=== PATIENT | male | born 1960 | race Caucasian/White ===

== ENCOUNTER → 2017-10-18 | Outpatient (REF) ==
[~2017-10-18] MED LIST: ASPIRIN E.C. 8181 MG PO; LIPITOR40 MG PO; SYNTHROID0.2 M1 PO; VITAMIN D32000 IU PO; ZOCOR 20MG20 MG PO
== END ==
LOC: ZLAB.WCH 17:50
DX: Z01.89 Encounter for other specified special examinations (principal)

== ENCOUNTER → 2017-11-14 | Outpatient (REF) | LOC: ZLAB.WCH 17:48 | DX: Z01.89 Encounter for other specified special examinations (principal) | CPT/HCPCS: G0103 ==

== ENCOUNTER 2018-03-29 13:13 | Inpatient (IN) | payer BC ==
[~2018-03-29] VITALS: Ht 180.3 cm; Wt 93.5 kg
[2018-04-04] VITALS (12 sets, daily range): BP systolic 119–146; BP diastolic 60–86; PULSE 66–84; TEMP 98.3–99.7
[2018-04-04] MEDS ORDERED: SYNTHROID0.075 MG/T PO (06:03)
[2018-04-04] MEDS ORDERED: ZYRTEC 10MG10 MG PO (06:04)
[2018-04-04] MEDS ORDERED: FLEXERIL 1010 MG/TAB PO (12:17)
[2018-04-04] MEDS ORDERED: TYLENOL 500MG500 MG PO (12:18)
[2018-04-05 04:00] VITALS: BP 119/67; PULSE 67; TEMP 98.6
[2018-04-05 06:25] LABS: BASO % 0.3 % (0.0-2.0); EOS % 0.2 % (0-4.0); GRAN # 8.5 (1.4-6.5); GRAN % 71.5 % (42.2-75.2); LYMPH % 17.2 % (20.0-51.0); MEAN CELL VOLUME 92 fl (80.0-100.0); MEAN CORPUSCULAR HEMOGLOBIN 30 pg (27.0-31.0); MEAN CORPUSCULAR HGB CONC 33 g/dl (33.0-37.0); MEAN PLATELET VOLUME 9.5 fl (7.4-10.4); MONO # 1.2 (0.1-0.6); MONO % 10.3 % (1.7-9.3); PLATELET COUNT 220 K/mm3 (130-400); RED BLOOD COUNT 4.03 M/mm3 (4.20-5.60); REDCELL DISTRIBUTION WIDTH-CV 14.2 % (11.5-14.5)
[2018-04-05 06:29] LABS: HEMATOCRIT 36.9 % (42.0-52.0)
[2018-04-05 06:36] LABS: CALCIUM 8.5 mg/dL (8.4-10.2); CREATININE, serum 0.92 mg/dL (0.66-1.25); POTASSIUM 4.3 mmol/L (3.4-5.0)
[2018-04-05 08:26] VITALS: BP 109/64; PULSE 84; TEMP 98.5
[2018-04-05 12:08] VITALS: BP 122/73; PULSE 69; TEMP 98
[2018-04-05 16:06] VITALS: BP 126/66; PULSE 67; TEMP 98.6
[2018-04-05 21:22] VITALS: BP 143/75; PULSE 70; TEMP 98.3
[2018-04-06 00:34] VITALS: BP 131/76; PULSE 64; TEMP 98.5
[2018-04-06 05:00] VITALS: BP 128/76; PULSE 71; TEMP 97.9
[2018-04-06 07:00] VITALS: BP 127/76; PULSE 75; TEMP 98.1
[2018-04-06 11:29] VITALS: BP 139/72; PULSE 70; TEMP 98.6
== END 2018-04-06 13:27 | disposition home or self-care (01) | DRG 708 ==
LOC: SURG 04-04 05:35 → INPTSU 04-04 05:35 → SURG 04-04 07:30
PROVIDERS: Urology
PROC: 8E0W4CZ Robotic Assisted Procedure of Trunk Region, Percutaneous Endoscopic Approach (ICD-10-PCS; 2018-04-04)
PROC: 0VT04ZZ Resection of Prostate, Percutaneous Endoscopic Approach (ICD-10-PCS; principal; 2018-04-04 07:30)
DX: C61 Malignant neoplasm of prostate (principal); J45.909 Unspecified asthma, uncomplicated; K58.9 Irritable bowel syndrome, unspecified
CPT/HCPCS: A9284; C1713; J0690; J1100; J1885; J2175; J2370; J2405; J2704; J7120

== ENCOUNTER 2018-04-08 10:44 | Emergency (ER) | payer BC ==
[~2018-04-08] VITALS: Ht 180.3 cm; Wt 95.5 kg
[~2018-04-08 10:44] MED LIST changes: +FLEXERIL 1010 MG/TAB PO; +SYNTHROID0.075 MG/T PO; +TYLENOL 500MG500 MG PO; +ZYRTEC 10MG10 MG PO
[2018-04-08 10:52] VITALS: BP 134/86; PULSE 83; TEMP 98.8
== END 2018-04-08 11:50 | disposition home or self-care (01) ==
LOC: COL.ER 10:44
DX: T83.098A Other mechanical complication of other urinary catheter, initial encounter (principal); Y84.6 Urinary catheterization as the cause of abnormal reaction of the patient, or of later complication, without mention of misadventure at the time of the procedure

== ENCOUNTER → 2018-05-22 | Outpatient (REF) | LOC: ZLAB.WCH 16:18 | DX: Z01.89 Encounter for other specified special examinations (principal) | CPT/HCPCS: G0103 ==

== ENCOUNTER → 2018-08-21 | Outpatient (REF) | LOC: ZLAB.WCH 16:07 | DX: Z01.89 Encounter for other specified special examinations (principal) | CPT/HCPCS: G0103 ==

== ENCOUNTER → 2018-11-07 | Outpatient (REF) | LOC: ZLAB.WCH 14:08 | DX: Z01.89 Encounter for other specified special examinations (principal) | CPT/HCPCS: G0103 ==

== ENCOUNTER 2019-05-23 17:40 | Emergency (ER) | payer BC ==
[~2019-05-23] VITALS: Ht 180.3 cm; Wt 98.2 kg
[2019-05-23 18:04] VITALS: TEMP 98.5
[2019-05-23] MEDS ORDERED: VIAGRA50 M1 (18:42)
[2019-05-23] MEDS ORDERED: ASPIRIN 81M81 MG/TA2 PO (18:42)
[2019-05-23] MEDS ORDERED: MULTI VITAMINS1 TAB PO (18:42)
[2019-05-23] MEDS ORDERED: ZESTRIL 10MG10 MG PO (19:16)
[2019-05-23 19:40] VITALS: BP 142/84; PULSE 67
== END 2019-05-23 19:45 | disposition home or self-care (01) ==
LOC: COL.ER 17:40
DX: H53.8 Other visual disturbances (principal); I10 Essential (primary) hypertension; Z79.82 Long term (current) use of aspirin

== ENCOUNTER → 2019-11-06 | Outpatient (CLI) | payer BC ==
[~2019-11-06] MED LIST changes: +ASPIRIN 81M81 MG/TA2 PO; +MULTI VITAMINS1 TAB PO; +VIAGRA50 M1; +ZESTRIL 10MG10 MG PO
== END ==
LOC: COL.RAD 13:36
DX: E03.4 Atrophy of thyroid (acquired) (principal); K21.9 Gastro-esophageal reflux disease without esophagitis; G57.90 Unspecified mononeuropathy of unspecified lower limb; M47.812 Spondylosis without myelopathy or radiculopathy, cervical region; M48.02 Spinal stenosis, cervical region; M51.37 Other intervertebral disc degeneration, lumbosacral region; M51.26 Other intervertebral disc displacement, lumbar region; M48.07 Spinal stenosis, lumbosacral region